=== PATIENT | female | born 1995 | race Caucasian/White ===

== ENCOUNTER 2022-08-13 04:35 | Emergency (ER) | payer MEDICAID, OTHER ==
[~2022-08-13] VITALS: Ht 160 cm; Wt 89.7 kg
[2022-08-13 06:03] VITALS: BP 108/70
[2022-08-13] MEDS ORDERED: AMOX-277 PO (06:41)
[2022-08-13] MEDS ORDERED: IBUP800T27 PO (06:41)
== END 2022-08-13 06:55 | disposition home or self-care (01) ==
LOC: ER 04:35
DX: H66.92 Otitis media, unspecified, left ear (principal); Z79.1 Long term (current) use of non-steroidal anti-inflammatories (NSAID); Z79.2 Long term (current) use of antibiotics

== ENCOUNTER 2025-03-03 09:14 | Emergency (ER) | payer SELFPAY ==
[~2025-03-03] VITALS: Ht 160 cm; Wt 97.9 kg
[~2025-03-03 09:14] MED LIST: AMOX875T4 PO; IBUP-1456 PO
[2025-03-03 10:03] VITALS: BP 136/86; PULSE 67; RESP 17; TEMP 98; O2SAT 97
--- NOTE | 2025-03-03 12:13 | ED.PDOC ---
History of Present Illness HPI Comments 30F presents to the ER w/ no prior Hx associated to the c/c of neck pain. Pt reports on having neck pain since Tuesday, and started to have right shoulder pain which radiated to the head, to the back and it felt pressure like. Pt notes that she she is she took Tylenol x0200 this morning. Denies chills, fever, N/V/D, SOB, CP, LOC, Trauma. No other associated symptoms, modifiers, recent injuries or sick contacts present at this time. Chief Complaint: Neck Pain Time Seen by MD: 11:50 Primary Care Provider: wy Reviewed Notes: Nurses Notes, Medications, Allergies Allergies: Coded Allergies: NO KNOWN ALLERGIES (Unverified , 08/13/22) Home Meds Active Scripts Ibuprofen Micronized (MOTRIN TABLET) 600 Mg Tb, 600 MG PO TID PRN for 5 Days, #15 TAB *Black box warning-NSAIDS can increase risk of [place] & hypertension, GI irritation, ulceration, bleed, perferation. Do not use post cardiac surgery. Use short duration/lowest effective dose. 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 Family History Family History: Reviewed,noncontributory to illness, Unknown Social History Smoker: Non-Smoker Alcohol: Denies ETOH Use Drugs: Denies Drug Use Lives In: Home Constitutional: denies: chills, diaphoresis, fatigue, fever, malaise, sweats, weakness, others EENTM: denies: blurred vision, double vision, ear bleeding, ear discharge, ear drainage, ear pain, ear ringing, eye pain, eye redness, hearing loss, mouth pain, mouth swelling, nasal discharge, nose bleeding, nose congestion, nose pain, photophobia, tearing, throat pain, throat swelling, voice changes, others Respiratory: denies: cough, hemoptysis, orthopnea, SOB at rest, shortness of breath, SOB with excertion, stridor, wheezing, others Cardiovascular: denies: chest pain, dizzy spells, diaphoresis, Dyspnea on exertion, edema, irregular heart beat, left arm pain, lightheadedness, palpitations, PND, syncope, others Gastrointestinal: denies: abdomen distended, abdominal pain, blood streaked bowels, constipated, diarrhea, dysphagia, difficulty swallowing, hematemesis, melena, nausea, poor appetite, poor fluid intake, rectal bleeding, rectal pain, vomiting, others Genitourinary: denies: abnormal vagina bleeding, burning, dyspareunia, dysuria, flank pain, frequency, hematuria, incontinence, pain, , vagina discharge, urgency, others Neurological: denies: dizziness, fainting, headache, left sided numbness, left sided weakness, numbness, paresthesia, pre-existing deficit, right sided numbness, right sided weakness, seizure, speech problems, tingling, tremors, weakness, others Musculoskeletal: reports: back pain, neck pain; denies: gout, joint pain, joint swelling, muscle pain, muscle stiffness, others Integumetry: denies: bruises, change in color, change in hair/nails, dryness, laceration, lesions, lumps, rash, wounds, others Allergic/Immunocompromised: denies: Difficulty Healing, Frequent Infections, Hives, Itching, others Hematologic/Lymphatic: denies: anemia, blood clots, easy bleeding, easy bruising, swollen glands, others Endocrine: denies: excessive hunger, excessive sweating, excessive thirst, excessive urination, flushing, intolerance to cold, intolerance to heat, unexplained weight gain, unexplained weight loss, others Psychiatric: denies: anxiety, bipolar disorder, depression, hopeless, panic disorder, schizophrenia, sleepless, suicidal, others All Other Systems: Reviewed and Negative Physical Exam General Appearance: Moderate Distress, Normal HEENT: Normal ENT Inspection, Pharynx Normal, TMs Normal Neck: Full Range of Motion, Non-Tender, Normal, Normal Inspection Respiratory: Chest Non-Tender, Lungs Clear, No Accessory Muscle Use, No Respiratory Distress, Normal Breath Sounds Cardiovascular: No Edema, No JVD, No Murmur, No Gallop, Normal Peripheral Pulses, Regular Rate/Rhythm Breast Exam: Deferred Gastrointestinal: No Organomegaly, Non Tender, No Pulsatile Mass, Normal Bowel Sounds, Soft Genitalia: Deferred Pelvic: Deferred Rectal: Deferred Extremities: No calf tenderness, Normal capillary refill, Normal inspection, Normal range of motion, Non-tender, No pedal edema Musculoskeletal : Apperance: Normal Neurologic: Alert, design drafter II-XII nml as Tested, No Motor Deficits, Normal Affect, Normal Mood, No Sensory Deficits Cerebellar Function: Normal Reflexes: Normal Skin: Dry, Normal Color, Warm Peripheral Pulses: 3+ Radial (R), 3+ Radial (L) Lymphatic: No Adenopathy Was a procedure done? Was a procedure done?: No Differential Dx Considerations may include: Muscle strain X-Ray, Labs, Meds, VS Vital Signs Date Time Temp Pulse Resp B/P (MAP) Pulse Ox O2 Delivery O2 Flow Rate FiO2 03/03/25 10:03 98.0 67 17 136/86 (103) 97 98.0 03/03/25 10:03 67 17 97 Room Air 03/03/25 09:32 98.0 67 17 136/86 (103) 97 98.0 Current Medications Medications (Trade) Dose Ordered Sig/Margie Route Start Time Stop Time Status Last Admin Acetaminophen/ Hydrocodone Bitart ([place] 10/325MG Tab) 1 tab ONCE ONCE PO 03/03/25 13:15 03/03/25 13:16 DC 03/03/25 13:30 Patient alert. Complaining of neck stiffness. Vitals stable. Answering all questions. No sign of any trauma. Physical examination pristine. Possibly muscle spasm. Was given prescription of Motrin. X-ray of the cervical spine does not show any acute process. Has good motor sensory. Explained to the patient. Was told to follow up with her primary care physician. Was told to come back if there is any problem. [address] [address] Ph: [phone] DIAGNOSTIC IMAGING Diagnostic Imaging Report : [id number] Signed PATIENT: EITAN LIGHT ACCT: [id number] UNIT: [id number] : 1995 LOC: ER ROOM / BED: / AGE / SEX: 30 / F ADM STATUS: REG ER SERVICE 1154 ORDERING PHYSICIAN: CATIE FERNANDEZ MD PROCEDURE(s): CERV2 - CERVICAL SPINE 3V REASON: pain ORDER NUMBER(s): [id number], ACCESSION NUMBER(s): [id number] EXAM: XY CERVICAL SPINE 3V HISTORY: pain COMPARISON: None TECHNIQUE: AP, lateral, and odontoid views of the cervical spine were performed. FINDINGS: No cervical fracture, listhesis, or prevertebral soft tissue edema are identified. No significant degenerative changes. There is slight reversal of normal cervical lordosis. IMPRESSION: 1. No fracture or significant degenerative changes of the cervical spine. 2. Slight reversal of normal cervical lordosis which may be positional or due to muscle spasm. ATED BY: RENU PATEL MD DICTATED DATE/TIME: 03/03/25 1235 SIGNED BY: RENU PATEL MD SIGNED DATE/TIME: 03/03/25 1235 CC: Time of 1ST Reevaluation: 12:20 Reevaluation 1ST: Unchanged Patient Education/Counseling: Diagnosis, Treatment, Prognosis, Need For Follow Up Family Education/Counseling: Need For Follow Up Departure 1 Departure Time of Disposition: 13:07 Impression: Primary Impression: Muscle spasm Disposition: 01 HOME / SELF CARE / HOMELESS Condition: Good e-Prescriptions Ibuprofen Micronized (MOTRIN TABLET) 600 Mg Tb 600 MG PO TID PRN for 5 Days, #15 TAB *Black box warning-NSAIDS can increase risk of [place] & hypertension, GI irritation, ulceration, bleed, perferation. Do not use post cardiac surgery. Use short duration/lowest effective dose. Prov: CATIE FERNANDEZ MD 03/03/25 Discharged With: Self Critical Care Note Critical Care Time?: No Stability Stability form required: No I personally scribed for CATIE FERNANDEZ MD ([email or web address]) on 03/03/25 at 12:13. Electronically submitted by Edwin Silvestre ([email or web address]). I personally scribed for CATIE FERNANDEZ MD ([email or web address]) on 03/03/25 at 13:17. Electronically submitted by Edwin Silvestre ([email or web address]). CATIE FERNANDEZ MD March 03, 2025 12:13
--- NOTE | 2025-03-03 12:37 | DVH ---
EXAM: XY CERVICAL SPINE 3V HISTORY: pain COMPARISON: None TECHNIQUE: AP, lateral, and odontoid views of the cervical spine were performed. FINDINGS: No cervical fracture, listhesis, or prevertebral soft tissue edema are identified. No significant de generative changes. There is slight reversal of normal cervical lordosis. IMPRESSION: 1. No fracture or significant degenerative changes of the cervical spine. 2. Slight reversal of normal cervical lordosis which may be positional or due to muscle spasm.
[2025-03-03] MEDS ORDERED: IBU600T PO (13:08)
[2025-03-03] MEDS: HYDROcodone-ACET 10/325MG TAB PO ONE (13:30)
== END 2025-03-03 13:15 | disposition home or self-care (01) ==
LOC: ER 09:19
DX: M62.838 Other muscle spasm (principal); M54.2 Cervicalgia; M25.511 Pain in right shoulder; Z79.1 Long term (current) use of non-steroidal anti-inflammatories (NSAID); Z79.2 Long term (current) use of antibiotics
CPT/HCPCS: 72040